=== PATIENT | female | born 1990 | race African-American/Black ===

== ENCOUNTER 2024-03-25 00:11 | Emergency (ER) | payer SELFPAY ==
[~2024-03-25] VITALS: Ht 175.3 cm; Wt 108.9 kg
[2024-03-25 00:43] VITALS: TEMP 99.3
[2024-03-25] MEDS ORDERED: ULTRAM 50MG50 MG PO (01:45)
[2024-03-25 02:10] VITALS: PULSE 109; RESP 18; O2SAT 100
== END 2024-03-25 02:55 | disposition home or self-care (01) ==
LOC: ER 00:18
DX: S42.392A Other fracture of shaft of left humerus, initial encounter for closed fracture (principal); X50.0XXA Overexertion from strenuous movement or load, initial encounter; X50.9XXA Other and unspecified overexertion or strenuous movements or postures, initial encounter; Y99.0 Civilian activity done for income or pay
CPT/HCPCS: 99283